=== PATIENT | male | born 1995 | race Caucasian/White ===

== ENCOUNTER 2020-08-28 01:01 | Emergency (ER) | payer OTHER ==
--- NOTE | 2020-08-28 01:08 | ED Physician Documentation ---
PD HPI DYSPNEA - Stated complaint Stated Complaint: SOA - History obtained from History obtained from: Patient - History of Present Illness Timing - onset: How many hours ago (2-3) Timing - onset during: Rest Timing - details: Gradual onset Pain level max: 0 Pain level now: 0 Improved by: Rest Worsened by: Exertion Associated symptoms: No: Fever, Cough, Hemoptysis, Wheezing, Chest pain / discomfort, Palpitations, Bilateral edema, Unilateral edema Recently seen: Not recently seen - Additional information Additional information: approximately 2-3 hour [employer] while at home at rest (playing video games), patient had gradual onset of dyspnea with sensation of chest constriction (denies chest pain per se). He feels as though he cannot take a full, satisfying breath due to the sensation of chest constriction but, again, denies pain as the cause of not being able to take deep breath. Review of Systems Constitutional: denies: Fever, Chills, Sweats Cardiac: reports: Reviewed and negative Respiratory: reports: Dyspnea. denies: Cough, Hemoptysis, Wheezing Musculoskeletal: denies: Extremity swelling PD PAST MEDICAL HISTORY - Past Medical History Past Medical History: No - Present Medications Home Medications: Ambulatory Orders Medication Instructions Recorded Confirmed Albuterol Sulf [Ventolin Hfa 1 - 2 puffs INH Q4HR PRN #1 inhaler 08/28/20 Inhaler] - Allergies Allergies/Adverse Reactions: Allergies Allergy/AdvReac Type Severity Reaction Status Date / Time No Known Drug Allergies Allergy Verified 08/28/20 01:11 - Living Situation Living Arrangement: reports: At home - Social History Does the pt smoke?: No PD ED PE NORMAL - Vitals Vital signs reviewed: Yes - General General: Alert and oriented X 3, No acute distress, Well developed/nourished - Cardiac Cardiac: RRR, No murmur, No gallop, No rub - Respiratory Respiratory: No respiratory distress PD ED PE EXPANDED - Respiratory Respiratory: Wheezing (trace end-expiratory wheezing bilateral mid-lung hernandez) Results - Vitals Vitals: Vital Signs - 24 hr 08/28/20 08/28/20 08/28/20 01:09 01:15 02:26 Temperature 36.1 C L 36.1 C L Heart Rate 61 61 64 Respiratory 16 16 14 Rate Blood Pressure 141/80 H 141/80 H O2 Saturation 100 100 08/28/20 02:49 Temperature 36.1 C L Heart Rate 78 Respiratory 16 Rate Blood Pressure 128/79 O2 Saturation 100 Oxygen O2 Source Room air - Rads (name of study) cxr Radiology: Prelim report reviewed, See rad report PD MEDICAL DECISION MAKING - ED course Complexity details: reviewed results, re-evaluated patient, considered differential, d/w patient ED course: normal chest xray. NAD on exam, speaks in full sentences. There are trace end- expiratory wheezes bilateral mid-lung hernandez and patient reports feeling better after duoneb, says he can now take a deep, satisfying breath without sensation of chest constriction. No obvious etiology of symptoms H+P suggestive of mild bronchospasm. His PERC criteria are all negative. Departure - Departure Disposition: 01 Home, Self Care Clinical Impression: Dyspnea Qualifiers: Dyspnea type: unspecified Qualified Code(s): R06.00 - Dyspnea, unspecified Condition: Good Instructions: ED Dyspnea Shortness of Breath Follow-Up: HUY Coto [Provider Group] Prescriptions: Albuterol Sulf [Ventolin Hfa Inhaler] 1 - 2 puffs INH Q4HR PRN #1 inhaler PRN Reason: Shortness Of Air/Wheezing Discharge Date/Time: 08/28/20 02:49
[2020-08-28] MEDS ORDERED: IPRATROPIUM/ALBUTEROL 3 ML NEB INH STA (02:05)
[2020-08-28 02:50] VITALS: BP 128/79
--- NOTE | 2020-08-28 08:54 | XRAY Report ---
PROCEDURE: Chest 2 View X-Ray INDICATIONS: dyspnea TECHNIQUE: 2 view(s) of the chest. COMPARISON: None. FINDINGS: Surgical changes and devices: None. Lungs and pleura: No pleural effusions or pneumothorax. Lungs are clear. Mediastinum: Mediastinal contours are normal. Heart size is normal. Bones and chest wall: No suspicious bony abnormalities. Soft tissues appear unremarkable. IMPRESSION: No evidence acute pulmonary process. A preliminary report with the above findings was provided at the time of the study by [facility]. Reviewed by: Melecio Watson MD on 08/28/2020 7:53 AM [facility] Approved by: Melecio Watson MD on 08/28/2020 7:53 AM [facility] Station ID: [id number]
== END 2020-08-28 02:49 | disposition home or self-care (01) ==
LOC: ED 01:01
DX: R06.00 Dyspnea, unspecified (principal)
CPT/HCPCS: 94640; 99283